=== PATIENT | male | born 1945 | race Caucasian/White ===

== ENCOUNTER → 2022-10-10 13:00 | Outpatient (CLI) | payer OTHER, SELFPAY ==
--- NOTE | 2022-10-10 | DI.RAD.S_ITS ---
PROCEDURE: FL BARIUM SWALLOW W SPEECH INDICATIONS: Dysphagia, oropharyngeal phase COMPARISON: None. TECHNIQUE: Examination was conducted in conjunction with speech pathology per standard protocol. In the lateral projection, filming was performed of the patient swallowing. AP projection filming may also be performed with patient swallowing. COMPARISON: FINDINGS: Function: Suspected flash laryngeal penetration observed, however patulous appearance of the piriform sinuses makes evaluation difficult. No robby tracheal aspiration identified. Intermittent absence of epiglottic inversion and intermittent vallecular residue visualized. Morphology: No cricopharyngeal bar is identified. IMPRESSION: 1. No aspiration visualized during the exam. 2. Please see the speech pathologist report for additional details. Dictated by: Geovany Fink M.D. on 10/10/2022 at 15:07 Approved by: Geovany Fink M.D. on 10/10/2022 at 15:09
--- NOTE | 2022-10-11 17:26 | ST.SWALLOW ---
Visit Care Team Role Provider Type Malcolm Brothers MD Family Provider Non-Staff Specialty: Medical Address: [address], [place], [address] Email: Vadim Colon MD Attending Provider Non-Staff Referring Provider Specialty: Neurology Address: [address], [place], [address] Email: Modified Barium Swallow Study ENVIRONMENTAL REMEDIATION SPECIALIST Modified Barium Swallow Study Start: 10/11/22 16:03 Freq: Status: Active Protocol: Document 10/10/22 16:03 LNK (Rec: 10/11/22 17:25 LNK [id number]) Modified Barium Swallow Study Total Time Visit Start Time 13:30 Visit Stop Time 14:10 Total Visit Minutes 40 Visit Information Visit Number [address] Colon Reason for Referral dysphagia Setting Setting Outpatient Care Patient Information Identification Type Name,ID Card,ID Wristband Patient History pt was seen for a Modified barium Swallow Study (MBSS) at the referral of Dr. Colon. Pt has a medical diagnosis of Lewy body dementia. He was accompanied by his , Lynne. According to the pt and his , the pt has been c/o difficulty with swallowing when he is reclined in bed at night. He reports having difficulty swallowing and spitting. pt's also described the pt coughing during meals lately. According to his , the pt' s eye doctor remarked that he thought the pt had experienced a CVA. The pt had a MRI as f /u. Subjective Observations The pt was seated in the fluoroscopy chair with directions and procedures described for him. Pt indicated he understood and agreed to proceed. Patient Positioning Position View Lat-A/P Imaging Lateral View Textures Administered Trials Presented Thin Liquid via Spoon,Thin Liquid via Cup,Nimrod Liquid via Spoon,Pudding Thick Liquid via Spoon,Regular Textures, Barium Tablet Oral Phase Source: MBSIMP (TM) (C) Bolus Specific Scoring Grid Lip Closure No Impairment (WNL) Tongue Control During Bolus Hold No Impairment (WNL) Bolus Prep/Mastication No Impairment (WNL) Bolus Transport/Lingual Motion No Impairment (WNL) A/P Lingual Propulsion Delay No Oral Residue WFL Residue Clearing WFL Nasal Regurgitation No Additional Oral Phase Observations OME indicated the pt did not have upper or lower molars bilaterally. Other oral structures were observed to be WNL. DKS was noted to be slowed with speech clear and intelligible. Oral Phase of swallow was impacted by dentition in that there was anterior munching as mastication pattern. A/P transition for semi-solid and solid textures was delayed with [id number] lingual coordination. Pt was unable to transition the barium tablet posteriorly to the pharynx. He eventually spit the tablet out. Pharyngeal Phase Source: MBSIMP (TM) (C) Bolus Specific Scoring Grid Delayed Initiation of Pharyngeal Swallow Yes: bolus head spilled to the valeculla pre-swallow Soft Palate Elevation No Impairment (WNL) Tongue Base Strength/Range of Motion Moderate Impairment Residue Along the Tongue Base Yes Clearance of Residue Along Tongue Base Moderate Impairment Laryngeal Elevation Moderate Impairment Anterior Hyoid Movement Severe Impairment Epiglottic Range of Motion Moderate Impairment Vallecular Residue Yes: Inconsistent epiglottal inversion with residue across all trials Clearance of Vallecular Residue Moderate Impairment Laryngeal Vestibular Closure WFL Pharyngeal Stripping Wave Moderate Impairment Posterior Pharyngeal Wall Residue Yes Clearance of Posterior Pharyngeal Wall Mild Impairment Residue Upper Esophageal Sphincter Opening WFL Residue in the Pyriform Sinuses Yes Clearance of Residue in the Pyriform Mild Impairment Sinuses Esophageal Clearance Upright Position Minimal Impairment Pharyngoesophageal Backflow Observed No Additional Pharyngeal Phase Observations Tongue base weakness observed negatively impacting hyolaryngeal elevation and movement. This resulted in inconsistent epiglottal inversion ranging from not inverted to horizontal and to inverted (only with cookie trial/solids). Valecullar pooling was observed across all trials as a result of the inconsistent inversion of the epiglottis. When cued to swallow, pt was unable to produce volitional swallow. The posterior pharyngeal wall contraction was weak, affecting the bolus control to the UES. No laryngeal penetration not tracheal aspiration were observed. A/P View Textures Administered Trials Presented Thin Liquid via Spoon,Barium Tablet A/P View Observations Pharyngeal Contraction WFL Esophageal Function WFL Esophageal Clearance Upright Position WFL Clinical Impressions Dysphagia Type oropharyngeal Findings Airway protection was adequate with no laryngeal penetration or tracheal aspiration. Bolus control was negatively impacted by weak posterior pharyngeal wall contraction. Weakened tongue base control impacted epiglottal inversion with pooling observed in the pharyngeal cavities. No s/sx of aspiration observed. Pt's reported coughing during meals may be related to valecullar pooling and or reduced bolus control through the pharynx. Pt's primary complaint was difficulty with swallowing in a supine position in bed. There was no structural indication as to possible reasons for this to occur. It may be possible that in bed, lying flat, there is relaxation of the tongue base posteriorly, creating difficulty with swallowing. It was suggested to the pt and his that they consider a wedge pillow and/or raise the head of the bed with blocks so that the tongue does not relax as far into the pharynx. It was also suggested that if there is not relief to contact his physician for further assessment. Patient Appropriate for Therapy Not at this time Recommendations Diet Comments No changes in diet were recommended Aspiration Precautions Recommended Precautions Alternate Liquids/Solids,Small Bites/Sips Additional Precautions Elevate HOB Treatment Plan Compensatory Strategies Recommendations Small Bites and Sips,Alternate Liquids/Solids Additional Compensatory Strategies HOB elevation Recommended
== END ==
PROVIDERS: Family Provider Family Medicine; Referring Provider Psychiatry & Neurology Neurology; Visit Provider Psychiatry & Neurology Neurology
DX: R13.12 Dysphagia, oropharyngeal phase (principal)
CPT/HCPCS: 74230; 92611

== ENCOUNTER 2023-03-28 14:21 | Emergency (ER) | payer OTHER, SELFPAY ==
[2023-03-28 14:33] VITALS: BP 173/79; PULSE 65; RESP 18; TEMP 36.7; O2SAT 99; BMI 25.1
--- NOTE | 2023-03-28 14:50 | DI.RAD.S_ITS ---
PROCEDURE: XR SHOULDER RT MIN 2V INDICATIONS: fall, R shoulder pain TECHNIQUE: 2 views of the shoulder were acquired. COMPARISON: None. FINDINGS: Bones: No fractures or dislocations. No suspicious bony lesions. Degenerative changes of the glenohumeral joint. Visualized ribs appear intact. Soft tissues: No suspicious soft tissue calcifications. IMPRESSION: 1. No acute abnormality. 2. Degenerative changes of the glenohumeral joint. Dictated by: Aakash Arrieta M.D. on 03/28/2023 at 16:02 Approved by: Aakash Arrieta M.D. on 03/28/2023 at 16:07
--- NOTE | 2023-03-28 14:51 | DI.CT.S_ITS ---
PROCEDURE: CT HEAD/BRAIN WO CON INDICATIONS: Fall, abrasion posterior scalp. Mod trauma TECHNIQUE: Noncontrast 4.5 mm thick angled axial sections acquired from the foramen magnum to the vertex, with coronal and sagittal reformats. For radiation dose reduction, the following was used: automated exposure control, adjustment of mA and/or kV according to patient size. COMPARISON: [facility], CT, CT CERVICAL SPINE WO CON, 03/28/2023, 15:17. [facility], CT, CT HEAD WITHOUT CONTRAST, 09/25/2022, 11:53. FINDINGS: Image quality: Mild streak artifact can be seen through the skull base. CSF spaces: Basal cisterns are patent. No extra-axial fluid collections. The ventricles are symmetric in size and shape. Brain: No intracranial bleeds or masses. There is cerebral volume loss for age, with resultant ventricular and sulcal prominence. There are periventricular and deep white matter chronic small vessel ischemic changes. There is intracranial internal carotid artery atherosclerosis. Skull and face: Calvarium and visualized facial bones appear intact, without suspicious lesions. Sinuses: Mild mucosal thickening is seen within the paranasal sinuses. Mastoid IMPRESSION: No acute intracranial hemorrhage is seen. No acute intracranial process is seen. Dictated by: Joce Carias M.D. on 03/28/2023 at 14:22 Approved by: Joce Carias M.D. on 03/28/2023 at 14:23
--- NOTE | 2023-03-28 14:51 | DI.CT.S_ITS ---
PROCEDURE: CT CERVICAL SPINE WO CON INDICATIONS: Fall, abrasion posterior scalp. Mod trauma TECHNIQUE: Noncontrast 3 mm thick sections acquired from the skull base to the T4 level. Sagittal and coronal reformats were then constructed. For radiation dose reduction, the following was used: automated exposure control, adjustment of mA and/or kV according to patient size. COMPARISON: None. FINDINGS: Image quality: Excellent. Bones: No fractures or dislocations. Visualized superior ribs are intact. Prominent bilateral multilevel cervical facet arthropathy. Multilevel bony foraminal narrowing. Multilevel uncovertebral joint hypertrophy. Soft tissues: Prevertebral soft tissues are normal in thickness. No paravertebral hematomas. No apical pneumothoraces. IMPRESSION: 1. No acute cervical fracture or dislocation. 2. Severe cervical spondylitic change with multilevel facet arthropathy and multilevel foraminal narrowing. Dictated by: Heron Alas M.D. on 03/28/2023 at 15:39 Approved by: Heron Alas M.D. on 03/28/2023 at 15:45
--- NOTE | 2023-03-28 17:51 | PC.NURSE ---
dr Irby ordered that pt could remvoed c-collar
[2023-03-28 18:23] VITALS: BP 184/82; PULSE 64; O2SAT 99
--- NOTE | 2023-03-28 19:07 | ED_ITS ---
HPI - Head Injury General Chief complaint: Head Injury Stated complaint: Fall, Head inj, No thinners Time Seen by Provider: 03/28/23 18:48 Source: patient Mode of arrival: Ambulatory History of Present Illness HPI Narrative: Patient is a 77-year-old male. Not on blood thinners. Does have a history of Lewy body dementia. He is here with family who is providing some of the HPI. It appears that the patient was at his normal state of health. He was sitting on a stool. He states he just lost his balance and fell off the stool. He did hit his head. He did sustain a small bump to the back of his head. No loss of consciousness. He did have some neck pain and right shoulder pain. He went to a walk-in clinic and was sent here in the emergency department for evaluation. By the time I evaluated the patient he would already received all of his CT scans. He was not in a cervical collar when I evaluated him. He was not having neck pain and he stated that his shoulder pain was actually improving. Family states he is at his baseline mental status. Patient is ambulatory. Related Data Allergies Allergy/AdvReac Type Severity Reaction Status Date / Time hydrochlorothiazide Allergy Severe Swelling Verified 03/28/23 14:43 of Lip/Tongue/Throat lisinopril Allergy Unknown Verified 03/28/23 14:43 haloperidol [From Haldol] AdvReac Severe Hallucinati Verified 03/28/23 14:43 ng Review of Systems Constitutional Constitutional: Reports system reviewed and no additional complaints, except as documented Musculoskeletal Musculoskeletal: Reports system reviewed and no additional complaints, except as documented Integumentary/Breasts Skin/Breast: Reports system reviewed and no additional complaints, except as documented Neurologic Neurologic: Reports system reviewed and no additional complaints, except as documented Hematologic/Lymphatic On Anticoagulants: No Patient History Social History Smoking Status: Never smoker Smoking Status: Never smoker alcohol intake frequency: a few times a week Substance Use Type: does not use Exam Initial Vital Signs Initial Vital Signs: Vital Signs Temperature 98.1 F 03/28/23 14:33 Pulse Rate 65 03/28/23 14:33 Respiratory Rate 18 03/28/23 14:33 Blood Pressure 173/79 H 03/28/23 14:33 Pulse Oximetry 99 03/28/23 14:33 Oxygen Delivery Method Room Air 03/28/23 14:33 [facility] Head: contusion (Posterior aspect of scalp) Back/Spine/Pelvis Cervical Spine: No cervical spinal tenderness Thoracic/Lumbar Spine: No thoracic and lumbar spine normal to inspection and No thoracic spinal tenderness Skin Other: Abrasion in the posterior aspect of scalp Neuro General: patient alert, patient awake and moves all extremities Extrem Other: No gross deformities. No tenderness with palpation of the right shoulder. Full range of motion of the right shoulder. Course Orders Ordered: ED Orders 03/28/23 14:50 XR shoulder RT min 2V Stat 03/28/23 14:51 CT cervical spine wo con Stat CT head/brain wo con Stat Vital Signs Vital signs: Vital Signs - 8 hr 03/28/23 18:23 03/28/23 18:23 03/28/23 19:11 Pulse Rate 64 Blood Pressure 184/82 H Pulse Oximetry 99 99 Oxygen Delivery Method Room Air 03/28/23 19:12 03/28/23 19:13 Pulse Rate Blood Pressure 195/84 H 182/81 H Pulse Oximetry Oxygen Delivery Method MDM - Head Injury Imaging Data Extremity x-ray #1: Radiologist's Impression: PROCEDURE:? XR SHOULDER RT MIN 2V ? INDICATIONS:? fall, R shoulder pain ? TECHNIQUE:? 2 views of the shoulder were acquired.? ? COMPARISON:? None. ? FINDINGS:? ? Bones:? No fractures or dislocations.? No suspicious bony lesions.? Degenerative changes of the glenohumeral joint.? Visualized ribs appear intact.? ? Soft tissues:? No suspicious soft tissue calcifications.? ? IMPRESSION:? 1. No acute abnormality. 2. Degenerative changes of the glenohumeral joint.? CT - cervical spine: Radiologist's Impression: PROCEDURE:? CT CERVICAL SPINE WO CON ? INDICATIONS:? Fall, abrasion posterior scalp. Mod trauma ? TECHNIQUE:? Noncontrast 3 mm thick sections acquired from the skull base to the T4 level.? Sagittal and coronal reformats were then constructed.? For radiation dose reduction, the following was used:? automated exposure control, adjustment of mA and/or kV according to patient size.? ? COMPARISON:? None. ? FINDINGS:? Image quality:? Excellent.? ? Bones:? No fractures or dislocations.? Visualized superior ribs are intact.? Prominent bilateral multilevel cervical facet arthropathy.? Multilevel bony foraminal narrowing.? Multilevel uncovertebral joint hypertrophy. ? Soft tissues:? Prevertebral soft tissues are normal in thickness.? No paravertebral hematomas.? No apical pneumothoraces.? ? ? IMPRESSION:? ? 1. No acute cervical fracture or dislocation. ? 2. Severe cervical spondylitic change with multilevel facet arthropathy and multilevel foraminal narrowing.? CT scan - head: Radiologist's Impression: PROCEDURE:? CT HEAD/BRAIN WO CON ? INDICATIONS:? Fall, abrasion posterior scalp. Mod trauma ? TECHNIQUE:? Noncontrast 4.5 mm thick angled axial sections acquired from the foramen magnum to the vertex, with coronal and sagittal reformats.? For radiation dose reduction, the following was used:? automated exposure control, adjustment of mA and/or kV according to patient size.? ? COMPARISON:? [facility], CT, CT CERVICAL SPINE WO CON, 03/28/2023, 15:17.? [facility], CT, CT HEAD WITHOUT CONTRAST, 09/25/2022, 11:53. ? FINDINGS:? Image quality:? Mild streak artifact can be seen through the skull base. ? CSF spaces:? Basal cisterns are patent.? No extra-axial fluid collections.? The ventricles are symmetric in size and shape.? ? Brain:? No intracranial bleeds or masses.? There is cerebral volume loss for age, with resultant ventricular and sulcal prominence.? There are periventricular and deep white matter chronic small vessel ischemic changes.? There is intracranial internal carotid artery atherosclerosis.? ? Skull and face:? Calvarium and visualized facial bones appear intact, without suspicious lesions.? ? Sinuses:? Mild mucosal thickening is seen within the paranasal sinuses.? Mastoid ? ? ? IMPRESSION:? No acute intracranial hemorrhage is seen.? ? No acute intracranial process is seen. [facility] Narrative Medical decision making narrative: CT scans are unremarkable. X-rays are unremarkable. He says baseline mental status per family at bedside. Will discharge patient home with care instructions and return precautions. Family expressed understanding and agreement. Discharge Plan Departure Patient Disposition: Home Clinical Impression: Closed head injury, Contusion of scalp Instructions: DI for Closed Head Injury Activity Restrictions/Additional Instructions: He can take Tylenol for any apparent discomfort. He can continue all of his medications as directed. Return to the emergency department for new symptoms. Stand Alone Forms: Patient Portal/API
[2023-03-28 19:11] VITALS: O2SAT 99
[2023-03-28 19:12] VITALS: BP 195/84
[2023-03-28 19:13] VITALS: BP 182/81
== END 2023-03-28 19:23 | disposition home or self-care (01) ==
PROVIDERS: Emergency Provider Emergency Medicine; Family Provider Family Medicine
DX: S09.90XA Unspecified injury of head, initial encounter (principal); S00.03XA Contusion of scalp, initial encounter; W07.XXXA Fall from chair, initial encounter
CPT/HCPCS: 70450; 72125; 73030; 99281; 99284